=== PATIENT | female | born 1945 | race Caucasian/White ===

== ENCOUNTER 2016-09-16 11:34 | Emergency (ER) | payer MEDICARE, OTHER ==
[~2016-09-16] VITALS: Ht 154.9 cm; Wt 73.0 kg
[~2016-09-16 11:34] MED LIST: MAGN500T7 PO; METH500T50 PO; PSYL0.526 PO
[2016-09-16 11:39] VITALS: Ht 154.9 cm; Wt 73.0 kg
[2016-09-16 13:06] LABS: BASOPHILS % 0.5 % (0.0-2.0); EOSINOPHILS # 0.2 10^3/ul (0.0-0.5); EOSINOPHILS % 3.3 % (0.0-7.0); LYMPHOCYTES # 1.7 10^3/ul (0.8-2.9); LYMPHOCYTES % 31.2 % (15.0-51.0); MEAN CORPUSCULAR HEMOGLOBIN 28.8 pg (29.0-33.0); MEAN CORPUSCULAR HGB CONC 33.2 g/dl (32.0-37.0); MEAN CORPUSCULAR VOLUME 86.7 fl (82.0-101.0); MEAN PLATELET VOLUME 7.9 fl (7.4-10.4); MONOCYTE # 0.5 10^3/ul (0.3-0.9); MONOCYTES % 8.4 % (0.0-11.0); NEUTROPHIL # 3.1 10^3/ul (1.6-7.5); NEUTROPHILS % 56.6 % (39.0-77.0); PLATELET COUNT 275 10^3/UL (140-440); RED CELL DISTRIBUTION WIDTH 14.6 % (11.5-14.5); UNCORRECTED WBC 5.4 10^3/ul (4.8-10.8); WHITE BLOOD COUNT 5.4 10^3/ul (4.8-10.8)
[2016-09-16 13:07] LABS: CONDITION 1; LH ANALYZER COMMENTS 1
[2016-09-16 13:12] LABS: POTASSIUM 3.8 mmol/L (3.5-5.1)
[2016-09-16 13:14] LABS: ALBUMIN/GLOBULIN RATIO 1.4; CREATININE 0.7 mg/dl (0.44-1.00)
[2016-09-16 13:15] LABS: CALCIUM 9.2 mg/dl (8.4-10.2)
[2016-09-16 13:23] LABS: ALBUMIN 4.2 g/dl (3.3-4.9); BILIRUBIN,INDIRECT 0.1 mg/dl (0-1.1); BILIRUBIN,TOTAL 0.1 mg/dl (0.2-1.3); TOTAL PROTEIN 7.2 g/dl (6.1-8.1)
[2016-09-16 13:39] LABS: ADD UMIC YES; URINE BILIRUBIN (Dip) NEGATIVE (NEGATIVE); URINE BLOOD (Dip) TRACE (NEGATIVE); URINE COLOR LT. YELLOW (YELLOW); URINE GLUCOSE (Dip) NEGATIVE (NEGATIVE); URINE KETONES (Dip) NEGATIVE (NEGATIVE); URINE LEUKOCYTE ESTERASE (Dip) NEGATIVE (NEGATIVE); URINE NITRITE (Dip) NEGATIVE (NEGATIVE); URINE TOTAL PROTEIN (Dip) NEGATIVE (NEGATIVE); URINE UROBILINOGEN (Dip) 0.2 E.U./dL (0.1-1.0)
[2016-09-16 13:48] LABS: BACTERIA,URINE RARE; URINE RBCS 0-2 /HPF (0)
--- NOTE | 2016-09-16 14:11 | RADRPT ---
PROCEDURE: CT Abdomen and Pelvis without contrast. CLINICAL INDICATION: Abdominal and pelvic pain. Urinary tract infection. Fever. Left flank pain. TECHNIQUE: CT scan of the abdomen and pelvis without contrast was performed. Coronal and sagittal reformatted images were obtained from the axial source images. Images were reviewed on a high-resolu [employer] PACS workstation. Total exam DLP is 1112.78 mGy-cm. CTDIvol is 19.72 mGy. One or more of the following dose reduction techniques were used: Automated exposure control, adjustment of the mA and/ or kV according to patient size, use of iterative reconstruction technique. COMPARISON: None. FINDINGS: There is mild bronchiectasis and air space disease in the right middle lobe and lingula. The lung b ases are otherwise normal. There is no pleural effusion or pericardial effusion. The heart size is normal. The liver is normal in size and attenuation. There is no focal hepatic lesion. The gallbladder has multiple gallstones. There is no gallbladder wall thickening and there is no fl uid around the gallbladder. The spleen is normal in size. There is no focal splenic lesion. Both adrenals are normal with no enlargement or mass. The pancreas is unremarkable with no mass or evidence of pancreatitis. There is no renal mass or hydronephrosis. There is no renal calculus or ureteral calculus. The abdominal aorta is not dilated. There is calcification in the aorta consistent with atherosclero sis. There is no retroperitoneal lymphadenopathy or mass. Fibroids are present in the uterus with a posterior left pedunculated fibroid measuring 2.1 x 2.4 cm . There is no other pelvic lymphadenopathy or mass. The bladder and distal ureters are normal. The periappendiceal region is unremarkable with no evidence of appendicitis. The appendix is well se en and appears normal. The bowel and mesentery are normal. There is no free fluid or free gas. There is a large tortuous anterior pelvic wall vein extending between the right and left greater sap henous vein. The left common iliac vein and external iliac vein appear to be very small. The appea ken is unchanged from 03/22/2015. There are degenerative changes of the right hand and lumbar spine. There is no fracture or lytic le tyesha. IMPRESSION: 1. Mild bronchiectasis and air space disease in the right middle lobe and lingula. This can be see n with Mycobacterium avium-intracellulare a complex. Clinical correlation advised. 2. Gallstones in the gallbladder. No evidence of cholecystitis. 3. Atherosclerosis. 4. Fibroids in the uterus. 5. Normal appendix. 6. 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 This is unchanged from 03/22/2015. 7. Otherwise unremarkable study. RPTAT: QQ .Yonathan Oneill MD, MD Date Time Electronically viewed and signed by .Yonathan Oneill MD, on 09/16/2016 14:11 .R/
--- NOTE | 2016-09-16 14:18 | ERD ---
ER Documentation Chief Complaint Date/Time DATE: 09/16/16 TIME: 14:15 Chief Complaint ABD PAIN X 3 DAYS WITH CHILLS HPI This is a 71-year-old female presents to the emergency room with a chief complaint of abdominal pain for the past 3 days. The patient states that she periodically gets abdominal pain throughout the year and localizes to the lower portion of abdomen. She describes as an achy pain with no radiation and no aggravating or relieving factors. The patient is denying any diarrhea, nausea or vomiting associated with this. She is also denying any vaginal discharge or bleeding. ROS All systems reviewed and are negative except as per history of present illness. Medications Home Meds Discontinued Reported Medications Psyllium Husk (Psyllium Fiber) 0.52 G Capsule, 1 CAP PO DAILY 03/22/15 Methylcellulose (FIBER LAXATIVE) 500 Mg Tablet, 500 MG PO DAILY 03/22/15 Magnesium Oxide (Laxative Dietary Supplement) 500 Mg Tablet, 500 MG PO DAILY, TAB 03/22/15 Allergies Allergies: Coded Allergies: Penicillins (Verified Allergy, Severe, 09/16/16) PMhx/Soc Medical and Surgical Hx: pt denies Medical Hx, pt denies Surgical Hx Hx Miscellaneous Medical Probl: Yes (HTN) Hx Alcohol Use: No Hx Substance Use: No Hx Tobacco Use: No Smoking Status: Never smoker Physical Exam Vitals Vital Signs Date Time Temp Pulse Resp B/P Pulse Ox O2 Delivery O2 Flow Rate FiO2 09/16/16 11:39 98.6 70 18 169/90 98 Physical Exam INITIAL VITAL SIGNS: Reviewed by me GENERAL: The patient is well developed and appropriate for usual state of health in no apparent distress HEENT: Pupils equal, round, and reactive to light. EOMI. There is no scleral icterus. NECK: C-spine is soft and supple, there is no meningismus. There is no cervical lymphadenopathy. LUNGS: Clear to auscultation bilaterally. There are no rales, wheezes or rhonchi. HEART: Regular rate and rhythm, no murmurs, clicks, rubs or gallops. ABDOMEN: Suprapubic tenderness to palpation, otherwise soft, non-tender, non- distended. There are bowel sounds in all four quadrants. No rebound or guarding. EXTREMITIES: There is no peripheral cyanosis or edema. No focal swelling or erythema. NEUROLOGICAL: The patient moves all four extremities with 5/5 strength. Cranial nerves II - XII are intact. Normal gait. Alert and oriented SKIN: There is no apparent rash or petechiae. HEME/LYMPHATIC: There is no evidence of excessive bruising or lymphedema. PSYCHIATRIC: The patient does not appear anxious or depressed. Result Diagram: 09/16/16 1240 09/16/16 1240 Results 24 hrs Laboratory Tests Test 09/16/16 12:40 Alanine Aminotransferase (ALT/SGPT) 27IU/L Albumin 4.2g/dl Albumin/Globulin Ratio 1.40 Alkaline Phosphatase 121IU/L Anion Gap 15 Aspartate Amino Transf (AST/SGOT) 27IU/L Basophils # 0.010^3/ul Basophils % 0.5% Blood Morphology Comment Blood Urea Nitrogen 13mg/dl Calcium Level 9.2mg/dl Carbon Dioxide Level 28mmol/L Chloride Level 104mmol/L Creatinine 0.70mg/dl Direct Bilirubin 0.00mg/dl Eosinophils # 0.210^3/ul Eosinophils % 3.3% Globulin 3.00g/dl Glucose Level 75mg/dl Hematocrit 39.0% Hemoglobin 13.0g/dl Indirect Bilirubin 0.1mg/dl Lipase 74U/L Lymphocytes # 1.710^3/ul Lymphocytes % 31.2% Mean Corpuscular Hemoglobin 28.8pg Mean Corpuscular Hemoglobin Concent 33.2g/dl Mean Corpuscular Volume 86.7fl Mean Platelet Volume 7.9fl Monocytes # 0.510^3/ul Monocytes % 8.4% Neutrophils # 3.110^3/ul Neutrophils % 56.6% Nucleated Red Blood Cells # 0.010^3/ul Nucleated Red Blood Cells % 0.0/100WBC Platelet Count 00735^3/UL Potassium Level 3.8mmol/L Red Blood Count 4.5010^6/ul Red Cell Distribution Width 14.6% Sodium Level 143mmol/L Total Bilirubin 0.1mg/dl Total Protein 7.2g/dl Urine Bacteria RARE Urine Bilirubin NEGATIVE Urine Clarity CLEAR Urine Color LT. YELLOW Urine Glucose NEGATIVE% Urine Hemoglobin TRACE Urine Ketones NEGATIVE Urine Leukocyte Esterase NEGATIVE Urine Microscopic RBC 0-2/HPF Urine Microscopic WBC NONE SEEN/HPF Urine Nitrite NEGATIVE Urine Specific [place] <=1.005 Urine Total Protein NEGATIVE Urine Urobilinogen 0.2 E.U./dL Urine pH 6.5 White Blood Count 5.410^3/ul Procedures/MDM CT abdomen pelvis without: 1. Mild bronchiectasis and air space disease in the right middle lobe and lingula. This can be seen with Mycobacterium avium- intracellulare a complex. Clinical correlation advised. 2. Gallstones in the gallbladder. No evidence of cholecystitis. 3. Atherosclerosis. 4. Fibroids in the uterus. 5. Normal appendix. 6. Large tortuous anterior pelvic wall vein. 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 This is unchanged from 03/22/2015. 7. Otherwise unremarkable study. This is a 71-year-old female who presents to the emergency room for evaluation of lower abdominal pain. This patient did have suprapubic tenderness to palpation on my examination. Lab work was obtained including a urinalysis which were normal. This patient's CAT scan does not show any acute intra- abdominal process, however she does have uterine fibroids. When I talked her about uterine fibroids she states that she was told that she needs to have them removed. I asked her she is follow-up with an [facility] physician and she says no. The patient is not taking any medication for this and she will be discharged home with a prescription for Motrin and [facility] referral. Differential diagnoses entertained was broad with potential high acuity. Patient has been evaluated for appendicitis, cholecystitis, and other high risk medical and surgical causes of abdominal pain. Ultimately the patient's evaluation is nondiagnostic. Based on the patient's lack of risk factors, as well as the patient's clinical, laboratory, and imaging data, the patient appears to be low risk for these high risk causes of abdominal pain. Departure Diagnosis: Primary Impression: Abdominal pain Additional Impression: Uterine fibroid Condition: Stable MARENMAHAMED TRIPPEVELYN SHAH Sep 16, 2016 14:18
[2016-09-16] MEDS ORDERED: IBUP800T25 PO (14:19)
[2016-09-16 14:47] VITALS: BP 152/79; PULSE 71; RESP 18; TEMP 98.6
== END 2016-09-16 14:48 | disposition home or self-care (01) ==
LOC: E/R 11:34
DX: R10.30 Lower abdominal pain, unspecified (principal); R40.2252 Coma scale, best verbal response, oriented, at arrival to emergency department; D25.9 Leiomyoma of uterus, unspecified; I10 Essential (primary) hypertension; R40.2362 Coma scale, best motor response, obeys commands, at arrival to emergency department; R40.2142 Coma scale, eyes open, spontaneous, at arrival to emergency department
CPT/HCPCS: 36415; 74176; 80053; 81001; 81003; 83690; 85025